=== PATIENT | female | born 1965 | race Caucasian/White ===

== ENCOUNTER → 2021-11-15 08:03 | Outpatient (BNVA) | payer OTHER, SELFPAY | PROVIDERS: PCP Pediatrics; Visit Provider Psychiatry & Neurology Neurology ==

== ENCOUNTER → 2022-01-01 10:03 | Outpatient (REF) | payer OTHER, SELFPAY | LOC: HO.SL 10:03 | PROVIDERS: PCP Pediatrics; Visit Provider Psychiatry & Neurology Neurology | DX: G47.33 Obstructive sleep apnea (adult) (pediatric) (principal); G47.9 Sleep disorder, unspecified; R06.83 Snoring; R40.0 Somnolence; I10 Essential (primary) hypertension | CPT/HCPCS: 95806 ==

== ENCOUNTER → 2022-01-17 11:24 | Outpatient (BNVA) | payer OTHER, SELFPAY | PROVIDERS: PCP Pediatrics; Visit Provider Psychiatry & Neurology Neurology | DX: Z13.89 Encounter for screening for other disorder (principal) ==

== ENCOUNTER → 2023-02-10 09:31 | Outpatient (BNVA) | payer OTHER, SELFPAY | PROVIDERS: PCP Internal Medicine; Visit Provider Nurse Practitioner Family ==

== ENCOUNTER 2024-07-06 15:22 | Outpatient (AMB) | payer OTHER, SELFPAY ==
--- NOTE | 2024-07-06 15:34 | MHC.OFFVIS ---
Vital Signs 07/06/24 15:35 Height 5 ft Weight 216 lb 4 oz BMI 42.2 BP 130/86 Blood Pressure Location Rt brachial Position Sitting Respiration 17 Pulse 77 Pulse Source Pulse Oximeter Pulse Oximetry (%) 98 Oxygen Delivery Method Room Air Intake Visit Reasons: 1 yr f/u for Sleep Intake Note: Pt presents for one year follow up for MICHAEL. Cell Geneticist Required: No Allergies No Known Allergies Allergy (Verified 07/06/24 15:34) HPI Comments Details: 59-yr-old female presents for follow-up visit of sleep apnea. Pt did undergo RUE carpal tunnel repair by Dr Scruggs at [facility]- she is no longer having RUE numbness and tingling. She plans to have LUE CT repair as well. She also had an endometrial polyp excision. Overall, pt has been using her CPAP most nights, sleeps well with use. At times, her nasal pillow may irritate her nose, but this has resolved. BP is normotensive. [place] [id number] Email: [email or web address] Compliance Report Usage 06/06/2024 - 07/05/2024 Usage days 25/30 days (83%) >= 4 hours 23 days (77%) < 4 hours 2 days (7%) Usage hours 160 hours 23 minutes Average usage (total days) 5 hours 21 minutes Average usage (days used) 6 hours 25 minutes Median usage (days used) 6 hours 54 minutes Total used hours (value since last reset - 07/05/2024) 1,817 hours [employer] 11 AutoSet Serial number [id number] Mode AutoSet Min Pressure 5 cmH2O Max Pressure 20 cmH2O EPR Fulltime EPR level 2 Response Standard Therapy Pressure - cmH2O Median: 8.0 95th percentile: 10.4 Maximum: 11.7 Leaks - L/min Median: 0.0 95th percentile: 0.6 Maximum: 10.7 Events per hour AI: 1.4 HI: 0.4 AHI: 1.8 Apnea Index Central: 0.0 Obstructive: 1.3 Unknown: 0.0 RERA Index 0.4 PFSH Medical History (Updated 07/06/24 @ 16:50 by MAMIE Carroll) Endometrial polyp Sleep disorder Plantar fasciitis Hyperlipidemia HTN (hypertension) Anxiety GERD (gastroesophageal reflux disease) Gallstones Surgical History (Updated 07/06/24 @ 15:40 by Carol Lambert CMA) S/P carpal tunnel release No pertinent past surgical history Social History Alcohol intake: current Alcohol intake frequency: holidays/special occasions only Patient Tobacco Use Status: Former Tobacco user Physical Exam Vital Signs: Last Vital Signs Pulse 77 07/06/24 15:35 Resp 17 07/06/24 15:35 BP 130/86 07/06/24 15:35 Pulse Ox 98 07/06/24 15:35 Oxygen Delivery Method Room Air 07/06/24 15:35 BMI result Body Mass Index 42.2 Const General: no acute distress Orientation/consciousness: patient oriented x3 HEENT Other: Mallampati stage Resp Effort & Inspection: normal respiratory effort and able to speak in complete sentences Auscultation: clear to auscultation bilaterally Neuro General: patient oriented x3 Psych Mental Status: mental status grossly normal Speech and movement: Clear speech present Attitude: cooperative Results Reviewed Results Reviewed: PAP compliance report- see HPI Assessment & Plan Assessment & Plan (1) Obstructive sleep apnea hypopnea, moderate: Comment: The total AHI was 14/hr and oxygen walter was 80 %. Code(s): G47.33 - Obstructive sleep apnea (adult) (pediatric) Category: Medical Plan Continue APAP 5-20 cmH2O w/ EPR 2 nightly > 4 hours, as pt continues to have good clinical effect from use.. Clean CPAP machine and supplies routinely. Change CPAP supplies routinely. Pt to contact us or respiratory company with any questions or concerns. Pt to follow-up in 12 months or sooner prn. Coding Level of Care Code Est Pt Level 3 (99904) Diagnoses Obstructive sleep apnea hypopnea, moderate G47.33
[2024-07-06 15:35] VITALS: BP 130/86; PULSE 77; RESP 17; O2SAT 98; BMI 42.2
== END 2024-07-06 16:12 | disposition home or self-care (01) ==
PROVIDERS: Visit Provider Nurse Practitioner Family
DX: G47.33 Obstructive sleep apnea (adult) (pediatric) (principal)
CPT/HCPCS: 99213

== ENCOUNTER → 2024-07-06 15:22 | Outpatient (BNVA) | payer OTHER, SELFPAY | PROVIDERS: Visit Provider Nurse Practitioner Family ==